=== PATIENT | female | born 1945 | race Caucasian/White ===

== ENCOUNTER → 2018-02-11 13:08 | Outpatient (CLI) | payer MEDICARE, OTHER, SELFPAY | PROVIDERS: Family Provider Family Medicine; PCP Family Medicine; Visit Provider Family Medicine | DX: M85.851 Other specified disorders of bone density and structure, right thigh (principal); Z78.0 Asymptomatic menopausal state; Z82.62 Family history of osteoporosis | CPT/HCPCS: 77080 ==

== ENCOUNTER 2018-04-02 12:20 | Emergency (ER) | payer MEDICARE, OTHER, SELFPAY ==
[2018-04-02 12:20] VITALS: BP 138/78; PULSE 68; RESP 13; TEMP 36.1; O2SAT 99
--- NOTE | 2018-04-02 13:49 | ED_ITS ---
HPI - Abdominal Pain General Chief Complaint: Abdominal Pain Stated Complaint: LEFT ABD PAIN AND N/V Time Seen by Provider: 04/02/18 13:49 Source: patient Mode of arrival: ambulatory Limitations: no limitations History of Present Illness HPI narrative: 72-year-old female here for evaluation of left lower quadrant abdominal pain. Patient states that this morning she was standing in her kitchen cooking food for dinner this evening when she had a fairly sudden onset of left lower quadrant abdominal pain. She states that she went had a bowel movement which did not change any of her symptoms. No blood no constipation no diarrhea of the stool. She states that she did become very sweaty during that time. She states she did vomit 1 time at home which did not improve any of her symptoms. Pain was not getting any better so she called her to bring her to the emergency department. She states the pain continued until she got here. She states she was sitting waiting to get triaged when all the sudden the left lower quadrant symptoms improved relatively quickly. At the time of my evaluation she was essentially symptom free. Related Data Home Medications Medication Instructions Recorded Confirmed prednisone 5 mg PO #0 06/07/16 amoxicillin-pot clavulanate 875 mg PO Q8H #0 06/08/16 [Augmentin] pravastatin 40 mg PO QDAY #0 06/08/16 Previous Rx's Medication Instructions Recorded prednisone 50 mg PO AMCC 3 Days #0 tab 06/07/16 Allergies Allergy/AdvReac Type Severity Reaction Status Date / Time Sulfa (Sulfonamide Allergy Unknown Unverified 09/22/17 11:49 Antibiotics) [SULFA (SULFONAMIDE ANTIBIOTICS)] Review of Systems Constitutional Denies fatigue, Denies fever(s) and Denies lethargy ENT Ears, Nose, Mouth, and Throat: Denies vertigo and Denies dizziness Cardiovascular Denies chest pain and Denies dyspnea Respiratory Denies dyspnea Gastrointestinal Gastrointestinal: Reports abdominal pain, Denies melena, Denies bloating, Denies change in bowel habits, Denies constipation, Denies diarrhea, Reports nausea and Reports vomiting Musculoskeletal Denies myalgias and Denies arthralgias Integumentary/Breasts Denies lesions and Denies rash Neurologic Denies vertigo and Denies dizziness Endocrine Denies fatigue Hematologic/Lymphatic Denies easy bleeding and Denies easy bruising [facility] Medical History Hyperlipidemia (Acute) Exam Initial Vital Signs Initial Vital Signs: Vital Signs Temperature 97 F L 04/02/18 12:20 Pulse Rate 68 04/02/18 12:20 Respiratory Rate 13 04/02/18 12:20 Blood Pressure 138/78 04/02/18 12:20 Pulse Oximetry 99 04/02/18 12:20 Const General: cooperative, healthy appearing, comfortable, well developed, well groomed and No acute distress Orientation: alert, awake and oriented x3 HENMT Head: normal to inspection and normocephalic Resp Effort & Inspection: normal respiratory effort Auscultation: clear to auscultation bilaterally Cardio Rate: regular rate Rhythm: regular rhythm Pulses: radial pulses present GI Inspection: non-distended Palpation: soft, No firm, No rigid and No tender Back/Spine/Pelvis Back: No CVA tenderness Skin Lesions: no lesions Rashes: no rashes Neuro General: alert, awake and oriented x3 Extrem General: normal to inspection and capillary refill normal Psych Appearance: grossly normal and well kempt Course Orders Ordered: ED Orders 04/02/18 12:58 Urine Microscopic Stat Vital Signs - 8 hr 04/02/18 12:20 Temperature 97 F L Pulse Rate 68 Respiratory Rate 13 Blood Pressure 138/78 Pulse Oximetry 99 MDM - Abdominal Pain Lab Data Point of care testing: Urine Dip Bedside Urine Glucose Negative Bedside Urine Bilirubin - Negative Bedside Urine Ketone +/- 5 Urine Specific [place]ph[place] 1.015 Bedside Urine Occult Blood +/- Bedside Urine pH 7.0 Bedside Urine Protein - Negative Bedside Urine Urobilinogen - Negative Bedside Urine Nitrite - Negative Bedside Urine Leukocytes - Negative Esterase MDM Narrative Medical decision making narrative: Patient was completely asymptomatic here in the emergency department. She did have blood in her urine and her symptoms are somewhat consistent with a kidney stone. She has never had a kidney stone in the past. I did discuss with her the options to include holding on any further workup for now since she was completely symptom free versus is doing things like a CT scan and blood work for evaluation of other intra-abdominal pathology such as appendicitis, bowel obstruction, diverticulitis. After this discussion the patient opted to not have any further workup performed. I do not feel like this is unreasonable given her current clinical situation. She did understand that we could potentially be missing a intra-abdominal surgical issue. She was given return precautions. She expressed understanding and agreement with plan. Discharge Plan Departure Patient Disposition: Home Clinical Impression: Abdominal pain Instructions: DI for Abdominal Pain-Adult Activity Restrictions/Additional Instructions: We opted not to do any further studies since you were symptom free at the time of your evaluation. If her symptoms worsen or he develops new symptoms please return to the emergency department for further evaluation. Prescriptions: No Action prednisone 5 MG tablet 5 mg PO Qty: 0 RF: 0 prednisone 50 MG tablet 50 mg PO AMCC 3 Days Qty: 0 RF: 0 pravastatin 40 MG tablet 40 mg PO QDAY Qty: 0 RF: 0 amoxicillin-pot clavulanate [Augmentin] 875 MG/125 MG tablet 875 mg PO Q8H Qty: 0 RF: 0
--- NOTE | 2018-04-02 14:08 | PC.NURSE ---
pt had episode of left lower abdominal pain, with shortness of breath and nausea, but now pain free.
--- NOTE | 2018-04-02 14:18 | PC.NURSE ---
pt pain free at this time, states, she wanted to go home, she has company at home and she will be cooking. reminded that if any symptoms changes or worsen to return to emergency room, verbal understanding instructions, verbal understanding plan of care.
[2018-04-02 17:57] LABS: Bacteria Urine None Seen; WBC Urine None Seen (0-5/HPF)
[2018-04-02 18:18] LABS: Culture Indicated Urine Cult Not Indicated; Mucus Urine 1+ (Negative); RBC Urine 1-5/HPF (0-5/HPF)
== END 2018-04-02 14:30 | disposition home or self-care (01) ==
PROVIDERS: Emergency Provider Emergency Medicine; Family Provider Family Medicine; PCP Family Medicine
DX: R10.9 Unspecified abdominal pain (principal)
CPT/HCPCS: 81003; 81015; 99282; 99283

== ENCOUNTER 2019-03-14 12:13 | Emergency (ER) | payer MEDICARE, OTHER, SELFPAY ==
[2019-03-14 12:15] VITALS: BP 142/85; PULSE 90; RESP 85; TEMP 36.6; O2SAT 97
--- NOTE | 2019-03-14 12:36 | ED.HEATRA ---
HPI - Head Injury General Chief complaint: Head Injury Stated complaint: LACERATION OF FOREHEAD Time Seen by Provider: 03/14/19 12:36 Source: patient Mode of arrival: Ambulatory Limitations: no limitations History of Present Illness HPI Narrative: This is a 73-year-old female who comes to the emergency department with complaint of head injury. Patient and her for cutting limbs on a tree when 1 of them fell and struck the patient on the forehead. Patient was not knocked out. She stated it hurt. She does have a cut on her forehead, she was bleeding. She denies any major headache, states that she did get her viera rung. She denies any neck pain currently. No vision changes, no dizziness or syncope. No loss of vision. She denies any other injuries. No chest pain, no shortness of breath. No nausea or vomiting. Patient denies any issues with bowel movements or urination. She denies any numbness, weakness or tingling in her extremities. 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 She has several antibiotic allergies. Related Data Home Medications Medication Instructions Recorded Confirmed pravastatin 40 mg PO QDAY #0 06/08/16 Allergies Allergy/AdvReac Type Severity Reaction Status Date / Time ciprofloxacin [From Cipro] Allergy Severe Anaphylaxis Verified 03/14/19 14:15 moxifloxacin [From Avelox] Allergy Severe Anaphylaxis Verified 03/14/19 14:15 Sulfa (Sulfonamide Allergy Unknown Verified 03/14/19 14:15 Antibiotics) [SULFA (SULFONAMIDE ANTIBIOTICS)] Review of Systems Review of Systems ROS Unobtainable: All systems reviewed & are unremarkable except as noted in HPI and below Constitutional Constitutional: Reports headache(s) (mild), Denies weakness and Reports other (cut to forehead) Eyes Eyes: Denies change in vision ENT Ears, Nose, Mouth, and Throat: Reports as per HPI, Denies vertigo, Denies dizziness, Reports headache(s) (mild), Denies neck pain and Denies disequilibrium Cardiovascular Cardiovascular: Denies chest pain, Denies syncope, Denies dyspnea and Denies dyspnea on exertion Respiratory Respiratory: Denies dyspnea and Denies dyspnea on exertion Gastrointestinal Gastrointestinal: Denies abdominal pain, Denies change in bowel habits, Denies constipation, Denies diarrhea, Denies nausea and Denies vomiting Genitourinary Genitourinary: Denies urinary incontinence Musculoskeletal Musculoskeletal: Reports as per HPI, Denies back pain, Denies arthralgias, Denies limited range of motion, Denies muscle weakness, Denies neck pain, Denies numbness and Denies tingling Integumentary/Breasts Skin/Breast: Reports as per HPI, Denies unusual bruising and Reports wounds Neurologic Neurologic: Reports as per HPI, Denies confusion, Denies vertigo, Denies dizziness, Denies syncope, Reports headache(s) (mild), Denies focal weakness, Denies numbness, Denies sensory deficit, Denies tingling, Denies paresthesias, Denies disequilibrium and Denies weakness Psychiatric Psychiatric: Denies confusion [facility] Social History Smoking Status: Never smoker Exam Narrative Exam Narrative: GEN: Patient appears in no acute distress. HEAD: Patient has a 1 cm semi circular laceration into the subcutaneous, no galea involvement, no raccoon/King sign. NECK: Nontender, painless range of motion, trachea midline Negative Nexus criteria, there is midline tenderness, distracting injury, altered mental status, neuro deficit, recent EtOH. EYES: PERRLA, EOMI ENT: External inspection normal except as above, trachea is midline, TM's are normal no hemotypanum, Nares are clear, no septal hematoma, no dental or oral injury, airway is normal and with normal occlusion, No bony tenderness RESP: Chest is nontender and has symmetric movement, no ecchymosis, breath sounds are normal no crackles, wheezes or rales CVS: Heart sounds are normal, no murmur noted, No JVD. ABG/GI: Nontender, soft, normal bowel sounds, no distention, no organomegaly NEURO: Oriented AOx3, neuro is grossly intact, sensation and motor is normal all 4 extremities moving, cranial nerves II through XII are intact, GCS is 15 PSYCH: Normal mood and affect SKIN: Intact other than above, warm and dry, no crepitus and without decubitus BACK: No CVA tenderness, no vertebral tenderness, no step-off's, no crepitus EXT: Atraumatic, hips are nontender, no pedal edema, normal color and temperature, normal range of motion of extremities with normal tendon exam, 2+ pulses in all four extremities Initial Vital Signs Initial Vital Signs: Vital Signs Temperature 97.9 F 03/14/19 12:15 Pulse Rate 90 03/14/19 12:15 Respiratory Rate 85 H 03/14/19 12:15 Blood Pressure 142/85 H 03/14/19 12:15 Pulse Oximetry 97 03/14/19 12:15 Procedures Laceration Repair Laceration 1: Site: face Size (cm): 1 Description: other (curved) Depth: simple, single layer Local Anesthetic: lidocaine 1% Amount of anesthesia used (mL): 2 Pre-repair: wound explored, irrigated extensively and deep structures intact Skin layer closed with: vicryl Size (cm): 5-0 Number of sutures: 3 Technique: simple, interrupted Scores GCS [place] coma scale eye opening: Spontaneous [place] coma scale verbal response: Orientated [place] coma scale motor response: Obey commands [place] coma scale total score: 15 Course Orders Ordered: ED Orders 03/14/19 12:47 CT head/brain wo con Stat Discontinued Medications Bacitracin (Bacitracin) 1 applic TOP NOW ONE Stop: 03/14/19 14:17 Last Admin: 03/14/19 14:20 Dose: 1 applic Documented by: SCANAPO Lidocaine/Sodium Bicarbonate (Buffered Lidocaine 10 Ml Syr) 10 ml INJ NOW ONE Stop: 03/14/19 13:55 Last Admin: 03/14/19 14:15 Dose: 10 ml Documented by: XAVI Vital Signs Vital signs: Vital Signs - 8 hr 03/14/19 12:15 03/14/19 13:19 03/14/19 14:00 Temperature 97.9 F Pulse Rate 90 79 71 Respiratory Rate 85 H 16 12 Blood Pressure 142/85 H Blood Pressure [Right Arm] 119/67 146/72 H Pulse Oximetry 97 98 97 MDM - Head Injury Imaging Data CT scan - head: Radiologist's impression: [address] [address] [address] Scan Report Signed Patient: Temo Figueroa LMR#: [id number] : 6Acct:[id number] Age/Sex: 73 / FDate of Service: 03/14/19 Loc: ED Accession Number: [id number] Procedure: CT head/brain wo con Ordering Provider: Melissa Carbone D.O. PROCEDURE: CT HEAD/BRAIN WO CON INDICATIONS: large tree branch to head, Scarlet factor deficiency, lac TECHNIQUE: Noncontrast 4.5 mm thick angled axial sections acquired from the foramen magnum to the vertex, with coronal and sagittal reformats. For radiation dose reduction, the following was used: automated exposure control, adjustment of mA and/or kV according to patient size. COMPARISON: None. FINDINGS: Image quality: Excellent. CSF spaces: Basal cisterns are patent. No extra-axial fluid collections. The ventricles are symmetric in size and shape. Brain: No intracranial bleeds or masses. There is cerebral volume loss for age, with resultant ventricular and sulcal prominence. There are periventricular and deep white matter chronic small vessel ischemic changes. There is intracranial internal carotid artery atherosclerosis. Skull and face: Calvarium and visualized facial bones appear intact, without suspicious lesions. Small frontal scalp hematoma and laceration. Sinuses: Visualized sinuses and mastoids are clear. IMPRESSION: No acute intracranial disease process. Dictated by: Shelley Pollock MD, PhD on 03/14/2019 at 12:57 Approved by: Shelley Pollock MD, PhD on 03/14/2019 at 12:59 [facility] Narrative Medical decision making narrative: Patient cspine cleared clinically. 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 She denies any other injuries. Ct Head is negative. Patient's laceration was sutured. Bleeding stopped easily. Patient states she was tested because her mother had the disease but she has never required treatment for it. Discharge Plan Departure Patient Disposition: Home Clinical Impression: Forehead laceration, Head injury Discharge Date/Time: 03/14/19 14:25 Instructions: DI for Closed Head Injury Activity Restrictions/Additional Instructions: Follow-up with your primary care physician in the next 2-3 days for recheck. May continue home medications as prescribed. Wound Care: Keep wound(s) clean and dry. Wash daily with soap and water only. Do not use over the counter products (alcohol or peroxide)on the wounds unless instructed by a physician, you may apply a triple antibiotic ointment to the affected area twice daily. If wound condition worsens (increased/expanding redness, developing fluid blisters, or worsening pain), either contact your doctor for an urgent re-assessment , or return to the Emergency Department. Return to the Emergency Department for any new or worsening symptoms. Return if fever greater than 100.4 Fahrenheit, increased swelling, increasing pain or worsening symptoms such as increased discharge or spreading redness. Return for sudden or severe headaches, passing out, lightheadedness, persistent vomiting, vision changes, new chest pain, shortness of breath, loss of bowel or bladder control, new weakness, numbness or other new or concerning symptoms. Prescriptions: No Action pravastatin 40 MG tablet 40 mg PO QDAY Qty: 0 RF: 0 Referrals: Sahil Briceno MD [Primary Care Provider] -
--- NOTE | 2019-03-14 12:47 | DI.CT.S_ITS ---
PROCEDURE: CT HEAD/BRAIN WO CON INDICATIONS: large tree branch to head, [place] factor deficiency, lac TECHNIQUE: Noncontrast 4.5 mm thick angled axial sections acquired from the foramen magnum to the vertex, with coronal and sagittal reformats. For radiation dose reduction, the following was used: automated exposure control, adjustment of mA and/or kV according to patient size. COMPARISON: None. FINDINGS: Image quality: Excellent. CSF spaces: Basal cisterns are patent. No extra-axial fluid collections. The ventricles are symmetric in size and shape. Brain: No intracranial bleeds or masses. There is cerebral volume loss for age, with resultant ventricular and sulcal prominence. There are periventricular and deep white matter chronic small vessel ischemic changes. There is intracranial internal carotid artery atherosclerosis. Skull and face: Calvarium and visualized facial bones appear intact, without suspicious lesions. Small frontal scalp hematoma and laceration. Sinuses: Visualized sinuses and mastoids are clear. IMPRESSION: No acute intracranial disease process. Dictated by: Shelley Pollock MD, PhD on 03/14/2019 at 12:57 Approved by: Shelley Pollock MD, PhD on 03/14/2019 at 12:59
[2019-03-14 13:19] VITALS: BP 119/67; PULSE 79; RESP 16; O2SAT 98
[2019-03-14 14:00] VITALS: BP 146/72; PULSE 71; RESP 12; O2SAT 97
[2019-03-14] MEDS: LIDO 1%/SOD BICARB 8.4% (10ML) 10 ML SYRINGE INJ (14:15)
[2019-03-14] MEDS: BACITRACIN OINT 0.9 GM PCKT 1 APPLIC TOP (14:20)
== END 2019-03-14 14:25 | disposition home or self-care (01) ==
PROVIDERS: Emergency Provider Emergency Medicine; Family Provider Family Medicine; PCP Family Medicine
DX: S01.81XA Laceration without foreign body of other part of head, initial encounter (principal); S09.90XA Unspecified injury of head, initial encounter
CPT/HCPCS: 12011; 70450; 99282; 99284

== ENCOUNTER 2019-07-09 13:38 | Emergency (ER) | payer MEDICARE, OTHER, SELFPAY ==
[2019-07-09 13:51] VITALS: BP 147/75; PULSE 104; RESP 18; TEMP 36.5; O2SAT 98
--- NOTE | 2019-07-09 13:56 | ED.NAVMDI ---
HPI - Nausea/Vomiting/Diarrhea General Chief complaint: Nausea/Vomiting/Diarrhea Stated complaint: diarrhea 2x weeks/ incontrollable/ blood in stool Time Seen by Provider: 07/09/19 13:48 Source: patient Mode of arrival: Ambulatory Limitations: no limitations History of Present Illness HPI Narrative: Patient is a 74-year-old female who presents with diarrhea ongoing for last 2-3 weeks. She says she has had about 9 episodes a day she has lost 15 lb. Every time she eats or drinks anything it seems to go right through her. She has absolutely no abdominal pain fever or chills no recent travel no vomiting. She was diagnosed with IBS multiple years ago she found food sensitivities so she has already removed dairy and gluten and others from her diet and things have been controlled for numerous years. She has tried numerous things to help increase fluid and food intake however it does not matter what she eats or drinks she immediately has diarrhea. She has not been on any recent antibiotic Related Data Home Medications Medication Instructions Recorded Confirmed pravastatin 40 mg PO QDAY #0 06/08/16 Allergies Allergy/AdvReac Type Severity Reaction Status Date / Time ciprofloxacin [From Cipro] Allergy Severe Anaphylaxis Verified 03/14/19 14:15 moxifloxacin [From Avelox] Allergy Severe Anaphylaxis Verified 03/14/19 14:15 Sulfa (Sulfonamide Allergy Unknown Verified 03/14/19 14:15 Antibiotics) [SULFA (SULFONAMIDE ANTIBIOTICS)] Review of Systems Review of Systems Narrative: GENERAL:+ weight loss Denies chills, fatigue, malaise, fever, sweats, travel HEENT: Denies sinus pain, ear pain, sore throat, difficulty swallowing, neck pain RESPIRATORY: Denies dyspnea, cough, wheezing, hemoptysis, sputum. CARDIOVASCULAR: Denies chest pain, palpitations, orthopnea, edema GASTROINTESTINAL: See HPI : Denies dysuria, frequency, incontinence, hematuria, urinary retention, flank pain. MUSCULOSKELETAL: Denies weakness, joint pain, or bony pain SKIN: No rash, no erythema, no pruritus NEUROLOGIC: Denies weakness, dizziness, headache, numbness, change in speech, confusion PSYCHIATRIC: No concerning psychosocial issues. 12 point review of systems is negative except for those stated above and HPI Patient History Medical History Hyperlipidemia (Acute) Surgical History H/O: hysterectomy (Acute) Social History Smoking Status: Never smoker Smoking Status: Never smoker alcohol intake frequency: 0-2 drinks per day Substance Use Type: does not use Exam Initial Vital Signs Initial Vital Signs: Vital Signs Temperature 97.7 F 07/09/19 13:51 Pulse Rate 104 H 07/09/19 13:51 Respiratory Rate 18 07/09/19 13:51 Blood Pressure 147/75 H 07/09/19 13:51 Pulse Oximetry 98 07/09/19 13:51 GENERAL: Well-appearing, well-nourished and in no acute distress. HEENT: Head atraumatic,EOMI, pupils reactive CARDIOVASCULAR: Regular rate and rhythm without murmurs, rubs or gallops. RESPIRATORY: Breath sounds equal bilaterally, no wheezes rales or rhonchi. ABDOMEN: Soft, nontender. Normoactive bowel sounds all 4 quadrants. No guarding or rebound. EXTREMITIES: Normal range of motion, no clubbing or edema. Neurovascularly intact NEUROLOGICAL: Alert and oriented x4.Normal gait and speech. Cranial nerves II through XII grossly intact. SKIN: Warm, dry, no laceration, no petechiae, no rashes or lesions. Course Orders Ordered: ED Orders 07/09/19 14:00 Complete Blood Count AUTO DIFF Stat Comprehensive Metabolic Panel Stat Lipase Stat Partial Thromboplastin Time Stat Prothrombin Time INR Stat Discontinued Medications Sodium Chloride (Normal Saline 0.9%) 1,000 mls @ 1,000 mls/hr IV CONT LILY Last Infusion: 07/09/19 16:15 Dose: 0 mls/hr Documented by: Admin: 07/09/19 14:36 Dose: 1,000 mls/hr Documented by: THI Vital Signs Vital signs: Vital Signs - 8 hr 07/09/19 13:51 07/09/19 16:25 Temperature 97.7 F Pulse Rate 104 H 85 Respiratory Rate 18 21 Blood Pressure 147/75 H Blood Pressure [Left Arm] 129/63 Pulse Oximetry 98 99 MDM - Nausea/Vomiting/Diarrhea Lab Data Attestation: I reviewed the patient's lab results. Result diagrams: 07/09/19 14:00 07/09/19 14:00 Labs: Lab Results 07/09/19 07/09/19 07/09/19 Range/Units 14:00 14:00 14:00 WBC 5.5 (4.5-11.0) X10^3/uL RBC 4.96 (4.0-5.2) X10^6/uL Hgb 14.8 (12.0-16.0) g/dL Hct 44.4 (36-46) % MCV 89.4 (80-100) fL MCH 29.9 (26-34) PG MCHC 33.4 (30-36) % RDW 14.7 (11.6-14.8) % Plt Count 272 (150-400) X10^3/uL Neut % (Auto) 50.6 (50-75) % Lymph % (Auto) 32.7 (25-40) % [place] % (Auto) 13.9 (3-14) % Eos % (Auto) 2.0 (2-4) % Baso % (Auto) 0.8 (0-2) % Neut # (Auto) 2800 (5678-9916) /uL Lymph # (Auto) 1800 (2667-9661) /uL [place] # (Auto) 800 (0-900) /uL Eos # (Auto) 100 (0-450) /uL Baso # (Auto) 0 (0-100) /uL PT 11.8 (10.1-12.7) SECONDS INR 1.0 (0.9-1.3) APTT 33 (26.4-36.2) SECONDS Sodium 140 (137-145) mmol/L Potassium 4.2 (3.4-5.1) mmol/L Chloride 102 (98-107) mmol/L Carbon Dioxide 28 (22-32) mmol/L BUN 16 (7-17) mg/dL Creatinine 0.70 (0.52-1.04) mg/dL Estimated GFR > 60.0 (>60) mL/min BUN/Creatinine Ratio 22.9 H (6-22) Glucose 107 (80-110) mg/dL Calcium 9.8 (8.4-10.2) mg/dL Total Bilirubin 0.4 (0.2-1.3) mg/dL AST 27 (14-36) IU/L ALT 17 (<35) IU/L Alkaline Phosphatase 73 (38-126) U/L Total Protein 7.6 (6.3-8.2) g/dL Albumin 4.6 (3.5-5.0) g/dL Globulin 3.0 (1.7-4.1) g/dL Albumin/Globulin Ratio 1.5 (1.0-2.8) Lipase (23-300) U/L 07/09/19 Range/Units 14:00 WBC (4.5-11.0) X10^3/uL RBC (4.0-5.2) X10^6/uL Hgb (12.0-16.0) g/dL Hct (36-46) % MCV (80-100) fL MCH (26-34) PG MCHC (30-36) % RDW (11.6-14.8) % Plt Count (150-400) X10^3/uL Neut % (Auto) (50-75) % Lymph % (Auto) (25-40) % [place] % (Auto) (3-14) % Eos % (Auto) (2-4) % Baso % (Auto) (0-2) % Neut # (Auto) (6401-8778) /uL Lymph # (Auto) (8967-3765) /uL Providence # (Auto) (0-900) /uL Eos # (Auto) (0-450) /uL Baso # (Auto) (0-100) /uL PT (10.1-12.7) SECONDS INR (0.9-1.3) APTT (26.4-36.2) SECONDS Sodium (137-145) mmol/L Potassium (3.4-5.1) mmol/L Chloride (98-107) mmol/L Carbon Dioxide (22-32) mmol/L BUN (7-17) mg/dL Creatinine (0.52-1.04) mg/dL Estimated GFR (>60) mL/min BUN/Creatinine Ratio (6-22) Glucose (80-110) mg/dL Calcium (8.4-10.2) mg/dL Total Bilirubin (0.2-1.3) mg/dL AST (14-36) IU/L ALT (<35) IU/L Alkaline Phosphatase (38-126) U/L Total Protein (6.3-8.2) g/dL Albumin (3.5-5.0) g/dL Globulin (1.7-4.1) g/dL Albumin/Globulin Ratio (1.0-2.8) Lipase 89 (23-300) U/L Point of Care Testing Stool Occult Blood Positive Urine Dip Bedside Urine Glucose Negative Bedside Urine Bilirubin - Negative Bedside Urine Ketone - Negative Urine Specific Curtice 1.020 Bedside Urine Occult Blood - Negative Bedside Urine pH 6.0 Bedside Urine Protein - Negative Bedside Urine Urobilinogen - Negative Bedside Urine Nitrite - Negative Bedside Urine Leukocytes - Negative Esterase MDM Narrative Medical decision making narrative: The patient has not had diarrhea after 3-1/2 hours in the emergency department with food and drink. I have spoken with Dr. Espinal on-call for PCP who will order an outpatient in GI panel. Patient is sent home with stool collection kit. Patient's blood work overall is reassuring. No significant leukocytosis. She has not been on any recent antibiotics of C diff is still possible. She will need GI panel. Discharge Plan Departure Patient Disposition: Home Clinical Impression: Chronic diarrhea Discharge Date/Time: 07/09/19 17:44 Instructions: Diarrhea Activity Restrictions/Additional Instructions: *You have been diagnosed with chronic diarrhea *What to do: You need an outpatient stool sample you will be sent home with a stool collecting kit in the order will be placed tomorrow. *Continue to take medications as directed *Follow up with your primary care provider in 2-3 days *Return to ER if you should have increasing diarrhea, increasing pain or any new, worsening or concerning symptoms Prescriptions: No Action pravastatin 40 MG tablet 40 mg PO QDAY Qty: 0 RF: 0 Referrals: Sahil Briceno MD [Primary Care Provider] - Erica Guerra MD [Physician] -
--- NOTE | 2019-07-09 14:06 | PC.NURSE ---
denies traveling, denies antibiotic treatments.
[2019-07-09 14:33] LABS: Add Manual Diff / Slide Review NO; Basophils Absolute Auto 0 /uL (0-100); Basophils Percent Auto 0.8 % (0-2); Eosinophils Absolute Auto 100 /uL (0-450); Hematocrit 44.4 % (36-46); Hemoglobin 14.8 g/dL (12.0-16.0); Lymphocytes Absolute Auto 1800 /uL (1100-4500); Lymphocytes Percent Auto 32.7 % (25-40); Mean Corpuscular HGB Conc 33.4 % (30-36); Mean Corpuscular Hemoglobin 29.9 PG (26-34); Mean Corpuscular Volume 89.4 fL (80-100); Monocytes Absolute Auto 800 /uL (0-900); Monocytes Percent Auto 13.9 % (3-14); Neutrophils Absolute Auto 2800 /uL (1500-7000); Neutrophils Percent Auto 50.6 % (50-75); Platelet Count 272 X10^3/uL (150-400); Red Blood Cell Count 4.96 X10^6/uL (4.0-5.2); Red Cell Distribution Width 14.7 % (11.6-14.8); White Blood Cell Count 5.5 X10^3/uL (4.5-11.0)
[2019-07-09] MEDS: SODIUM CHLORIDE 0.9% 1,000 ML 1000 ML IV (14:36)
[2019-07-09 14:38] LABS: Prothrombin Time 11.8 SECONDS (10.1-12.7)
[2019-07-09 14:41] LABS: PTT Partial Thromboplastin Tim 33 SECONDS (26.4-36.2)
[2019-07-09 14:44] LABS: Alanine Aminotransferase 17 IU/L (<35); Albumin 4.6 g/dL (3.5-5.0); Albumin Globulin Ratio 1.5 (1.0-2.8); Alkaline Phosphatase 73 U/L (38-126); Aspartate Aminotransferase 27 IU/L (14-36); BUN Creatinine Ratio 22.9 (6-22); Bilirubin Total 0.4 mg/dL (0.2-1.3); Blood Urea Nitrogen 16 mg/dL (7-17); Calcium 9.8 mg/dL (8.4-10.2); Carbon Dioxide 28 mmol/L (22-32); Chloride 102 mmol/L (98-107); Estimated Glomerular Filt Rate > 60.0 mL/min (>60); Glucose 107 mg/dL (80-110); HEMOLYSIS < 15 (0-50); Lipase 89 U/L (23-300); Potassium 4.2 mmol/L (3.4-5.1); Sodium 140 mmol/L (137-145); Total Protein 7.6 g/dL (6.3-8.2)
[2019-07-09 16:25] VITALS: BP 129/63; PULSE 85; RESP 21; O2SAT 99
== END 2019-07-09 17:44 | disposition home or self-care (01) ==
PROVIDERS: Emergency Provider Emergency Medicine; Family Provider Family Medicine; PCP Family Medicine
DX: K58.0 Irritable bowel syndrome with diarrhea (principal)
CPT/HCPCS: 36415; 80053; 81003; 82272; 83690; 85025; 85610; 85730; 96360; 96361; 99284

== ENCOUNTER → 2019-07-15 10:52 | Outpatient (CLI) | payer MEDICARE, OTHER, SELFPAY ==
--- NOTE | 2019-07-15 | DI.MG.S_ITS ---
BILATERAL DIGITAL SCREENING MAMMOGRAM 3D/2D WITH CAD: 07/15/2019 CLINICAL: Routine screening. Comparison is made to exams dated: 05/03/2017 mammogram - [facility], 04/03/2016 mammogram, and 02/14/2015 mammogram - [facility]. There are scattered fibroglandular elements in both breasts. Current study was also evaluated with a Computer Aided Detection (CAD) system. No significant masses, calcifications, or other findings are seen in either breast. There has been no significant interval change. IMPRESSION: NEGATIVE There is no mammographic evidence of malignancy. A 1 year screening mammogram is recommended. This exam was interpreted at Station ID: [id number]. NOTE: For mammograms, a report in lay terms will be sent to the patient. Approximately 15% of breast malignancies will not be visualized mammographically. In the management of a palpable breast mass, a negative mammogram must not discourage biopsy of a clinically suspicious lesion. Electronically Signed By: Maggie mccray/kristian:07/17/2019 09:15:25 letter sent: Normal Exam ACR BI-RADS Category 1: Negative 3341F
== END ==
PROVIDERS: Family Provider Family Medicine; PCP Student in an Organized Health Care Education/Training Program; Referring Provider Student in an Organized Health Care Education/Training Program; Visit Provider Student in an Organized Health Care Education/Training Program
DX: Z12.31 Encounter for screening mammogram for malignant neoplasm of breast (principal)
CPT/HCPCS: 77063; 77067

== ENCOUNTER → 2019-11-07 08:45 | Outpatient (CLI) | payer MEDICARE, OTHER, SELFPAY ==
--- NOTE | 2019-11-07 | DI.US.S_ITS ---
PROCEDURE: US ABDOMEN COMPLETE INDICATIONS: IRRITABLE BOWEL SYNDROME W/O DIARRHEA TECHNIQUE: Real-time scanning was performed of the abdominal and retroperitoneal organs, with image documentation. COMPARISON: None. FINDINGS: Liver: Liver is normal in size and homogeneous in echotexture. Gallbladder: No gallstones. The gallbladder wall is equivocally thickened. No pericholecystic fluid. There is positive sonographic Knight's sign. Biliary ducts: Intrahepatic bile ducts are non-dilated. Extrahepatic bile duct caliber measures 4.7 mm. Normal is 6-7 mm or less in diameter, or 10 mm or less post-cholecystectomy. Pancreas: Visualized portions of the pancreas are sonographically normal. Spleen: Spleen is normal in size and homogeneous in echotexture. Kidneys: Kidneys are normal in size and echotexture. Right kidney measures 9.7 cm long; left kidney measures 10.6 cm long. No hydronephrosis or nephrolithiasis. No solid masses. Bilateral simple appearing renal cysts. A couple of cysts are seen in the left kidney measuring 4.0 x 3.5 x 2.7 cm and 2.1 x 2.3 x 2.3 cm. There is a 1.2 x 0.9 x 1.8 cm cyst in the right kidney. Aorta: Visualized aorta is normal in caliber at less than 3 cm. Iliacs: Proximal common iliac arteries are normal in caliber at less than 2.5 cm. IVC: Intrahepatic inferior vena cava is patent. Miscellaneous: No free abdominal fluid. IMPRESSION: 1. No gallstones. There is equivocal gallbladder wall thickening and positive sonographic Knight sign. If clinical symptoms persist or clinical suspicion for pathology is high, a HIDA scan or MRCP may be helpful for further evaluation. 2. Bilateral simple appearing renal cysts. Dictated by: Joshua Trent M.D. on 11/07/2019 at 10:36 Approved by: Joshua Trent M.D. on 11/07/2019 at 10:42
== END ==
PROVIDERS: Family Provider Family Medicine; PCP Student in an Organized Health Care Education/Training Program; Referring Provider Student in an Organized Health Care Education/Training Program; Visit Provider Student in an Organized Health Care Education/Training Program
DX: K58.9 Irritable bowel syndrome, unspecified (principal); R10.11 Right upper quadrant pain; R10.13 Epigastric pain; N28.1 Cyst of kidney, acquired
CPT/HCPCS: 76700

== ENCOUNTER → 2019-11-20 08:44 | Outpatient (CLI) | payer MEDICARE, OTHER, SELFPAY ==
--- NOTE | 2019-11-20 | DI.NM.S_ITS ---
PROCEDURE: NM HIDA WITH CCK PHARMACEUTICAL: 5.5 mCi Tc-99m mebrofenin IV; a 1.1 mcg CCK IV. INDICATIONS: Right upper quadrant pain TECHNIQUE: Following intravenous administration of Tc-99m mebrofenin, sequential anterior abdominal images were obtained. To evaluate the contractile response of the gallbladder in response to Cholecystokinin (CCK), sincalide (0.02 ?g/kg) was administered by slow intravenous infusion approximately 60 minutes after the administration of the radiopharmaceutical. Sequential imaging was continued for 30 minutes after the start of CCK infusion. Gallbladder ejection fraction was calculated. COMPARISON: [facility], , US ABDOMEN COMPLETE, 11/07/2019, 9:09. FINDINGS: Biliary scan: There is normal tracer uptake and excretion by the liver. There is normal visualization of the intrahepatic ducts, common bile duct, and gallbladder. There is normal tracer transit into the duodenum. CCK stimulation: There is markedly decreased contractile response of the gallbladder to CCK infusion. The calculated gallbladder ejection fraction is 6 %; normal values are above 35%. It has been shown that any patient abdominal pain after CCK administration is related to the rate of CCK injection, rather than to any underlying gallbladder disease (Clinical Nuclear Medicine 2012; 37: 63-70. Journal of Nuclear Medicine 2014; 55: 1-9). IMPRESSION: Markedly decreased gallbladder ejection fraction raising the possibility of chronic or acute on chronic acalculous cholecystitis. Please correlate clinically and with LFTs Dictated by: Kevin Tsang M.D. on 11/20/2019 at 13:19 Approved by: Kevin Tsang M.D. on 11/20/2019 at 13:22
== END ==
PROVIDERS: Family Provider Family Medicine; PCP Student in an Organized Health Care Education/Training Program; Referring Provider Family Medicine; Visit Provider Family Medicine
DX: R10.11 Right upper quadrant pain (principal)
CPT/HCPCS: 78227; A9537; J2805

== ENCOUNTER → 2020-01-07 08:39 | Outpatient (CLI) | payer MEDICARE, OTHER, SELFPAY ==
[2020-01-09 15:52] LABS: COVID19 Sendout Not Detected (Not Detect)
== END ==
PROVIDERS: Family Provider Family Medicine; PCP Family Medicine; Visit Provider Physician Assistant
DX: Z01.818 Encounter for other preprocedural examination (principal)
CPT/HCPCS: 87635

== ENCOUNTER 2020-01-10 06:43 | Day surgery (SDC) | payer MEDICARE, OTHER, SELFPAY ==
[2020-01-08 15:08] VITALS: BMI 23.0
[2020-01-10] VITALS (9 sets, daily range): BP systolic 122–156; BP diastolic 56–75; PULSE 45–68; RESP 12–16; TEMP 35.7–36.7; O2SAT 93–100; BMI 23.5
--- NOTE | 2020-01-10 | PATH_ITS ---
[facility] Accession Number: [id number] . 01 Material submitted: . gallbladder - GALLBLADDER . 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 Background of chronic cholecystitis and cholesterolosis. Negative for dysplasia or malignancy. [facility] 01/12/2020 1457 Local . 02 Electronically signed: . Amy Jamison MD, Pathologist NPI- [id number] . 01 Gross description: . Specimen A is received in formalin, labeled with patient identification and gallbladder. It consists of an intact gallbladder measuring 7.8 cm in length and 3.7 cm in diameter. The cystic duct margin is stapled shut and is inked blue. The cystic duct is 4.4 cm in length and 0.4 cm in diameter. The cystic duct adhered to the infundibulum. The serosa is green-arguelles, smooth and glistening. The 4.2 x 4.0 cm yellow-arguelles ragged and focally cauterized hepatic surface is inked black. Opening the specimen reveals green and mucoid content within the lumen which is lined by green and velvety mucosa. Sectioning reveals a 1.9 x 1.0 x 1.0 cm multicystic lesion within the fundal wall. The cystic lesion is 1.1 cm to the closest hepatic surface and abuts the serosal surface. The wall at the neck also has multiple cystic lesions ranging from 0.1 to 0.3 cm in greatest dimension, and the wall thickness at the neck is up to 0.4 cm. The serosal surface at these lesions is inked orange. The uninvolved wall ranges from 0.1 to 0.7 cm in thickness. No calculi or cystic lymph nodes are present. [employer] sections are submitted in seven cassettes. . Summary of sections: A1 - cystic duct margin, shaved, one piece. A2-A3 - sales representative groceries sections of multicystic fundal lesion to the serosa and the closest hepatic surface, one piece each. A4-A5 - the remaining sections of the multicystic fundal lesion to the uninvolved mucosa, one piece each. A6 - sales representative groceries sections of cystic lesion at the neck, four pieces. A7 - sales representative groceries uninvolved mucosa, three pieces. ([id number]) /MRV 01/11/2020 1446 Local . 02 Pathologist provided ICD-10: K82.8 . 02 CPT . 076722 Performed at: 01 [facility] [address], [place], [place] [id number] MD Nam Santacruz MD Phone: [phone] Performed at: 02 [facility] [address] [place], [place] [id number] MD Nora Dodd MD Phone: [phone]
[2020-01-10] MEDS: LACTATED RINGERS 1,000 ML 100 ML IV ×2 (07:20→11:32)
--- NOTE | 2020-01-10 07:39 | PM.PREOP ---
Pre-operative Note COVID-19 COVID-19 status: Negative Result date/Date tested (Pos, Neg/Pending): 01/07/20 Interval Note History & Physical reviewed/Exam performed by Physician: Yes Changes to H&P: No
[2020-01-10] MEDS: [UNRECOGNIZED DRUG - OTHER] 25 EACH IV (07:40)
[2020-01-10] MEDS: PIPERACILLIN-TAZO 3.375 GM/50 ML FROZ.PIGGY IV (08:00)
--- NOTE | 2020-01-10 08:13 | SUR.OPER ---
Supine on padded OR bed, head on pillow, arms secured on padded arm boards at <90 degrees abduction, legs uncrossed, safety belt at thigh, tape over blanket over lower legs.
[2020-01-10] MEDS: BUPIVACAINE 0.25% W/ EPI 30 ML VIAL INJ (08:33)
--- NOTE | 2020-01-10 09:39 | PM.OP.1 ---
Operative Date/Time/Diagnoses Date of procedure: 01/10/20 Time of procedure: 09:39 Pre-op diagnosis: Chronic cholecystitis; biliary dyskinesia Post-op diagnosis: same Procedure & Clinicians Procedure: Laparoscopic cholecystectomy with ICG dye cholangiography Same procedure as scheduled: Yes Indications: Biliary dyskinesia; chronic cholecystitis Surgeon: Cora Lima Click Yes if Unassisted: Yes Anesthesia Type: General Operative Notes Findings: Thickened gall bladder with dense adhesions Specimen(s): other (gall bladder) Estimated Blood Loss (mL): 1 Blood products transfused: none Procedure in detail: Prior to coming in the OR the patient was given 25 mg of indocyanine green intravenously in the preop area for ICG cholangiography. The patient was brought into the operating room and placed supine on the OR table. Sequential compression devices were placed on both legs and turned on. Appropriate perioperative antibiotics were given prior to the start of surgery. General anesthesia was induced the patient was intubated. The abdomen was prepped and draped in sterile fashion. Surgical time-out was conducted. Local anesthetic was injected under the skin just superior to the umbilicus and a 5 mm vertical incision was made at this site. The umbilical stalk was grasped with a Eze and elevated. A Veress needle was passed through the fascia into proper position. The position was tested with a saline drop test which was appropriate for intra-abdominal Veress needle placement. The abdomen was then insufflated in the usual fashion. Once insufflated to 15 mm Hg the Veress needle was removed and a 5 mm optical trocar was placed under direct vision using a 5 mm 30 degree scope. Once the camera was inside the abdomen I took a look around. There was no injury from port placement. Two additional ports were placed in a similar fashion in the right upper quadrant and a 10 mm port was placed in the epigastrium. Through the 2 lateral ports the gallbladder was grasped and elevated and the infundibulum was retracted laterally to the patient's right. This exposed the gallbladder hilum and allowed for dissection of the cystic duct and cystic artery. There was quite a bit adherent omentum along the surface of the gallbladder and the gallbladder hilum. This was taken down using [place] and L hook cautery. Once this was taken down the gallbladder was exposed. There was dense fibrotic scar tissue overlying the infundibulum and gallbladder hilum. This required tedious careful dissection to avoid injury to the bile ducts. We turned on the fluorescein lamp in order to view the bile ducts, which gave a good view of the cystic duct. It was very small and narrow structure which was scarred down, with the infundibulum overlapping it. After careful dissection, I was able to straighten out the cystic duct, and taken other view with the floor seen lamp. Using the ICG dye we are able to see well the cystic duct and that the area of clip placement was well away from the common duct. Once the cystic duct and artery were completely dissected out and I was able to see liver behind and between both structures without any other structures in the way, giving us the critical view of safety. At this point I doubly clipped both structures on the patient's side and put a single clip on the gallbladder side of both the cystic duct and artery. Both structures were then divided with laparoscopic Esme. Following this the gallbladder was gradually dissected free from the liver. There was quite a bit of hypervascularity of the scar tissue between the gallbladder and the liver. Several small vessels had to be controlled with cautery. As I moved up the fundus of the gallbladder, there was no plane between the gallbladder itself in the liver, and so the gallbladder had to be peeled off the raw surface of the liver, and the raw surface of the liver had to be cauterized, with good hemostasis. Once the gallbladder was entirely freed, it was placed inside an Endo-Catch bag and removed through the epigastric port site. I [did not] have to enlarge the epigastric site in order to get the gallbladder out. Once it was out and passed off to the back table I then took another look inside the abdomen. There was some raw surface of the gallbladder fossa which was slightly oozing, this was cauterized with L hook cautery, and a Surgicel was placed on the raw surface. There was no active bleeding or leaking of bile from the gallbladder fossa or from the clipped stumps of the cystic duct and artery. At this point the insufflation was removed from the abdomen and the epigastric port site was closed with 0 Vicryl suture in the fascia, 3 O Vicryl in the subcutaneous layers, and 4 Monocryl in the skin. The remaining port sites were closed with 4 Monocryl in the skin. Each port site was sealed with Dermabond. Local anesthetic was given at each of the port sites and in the fascia. This concluded the procedure. At this point the needle sponge and instrument counts were correct. The gallbladder was passed off the table for pathology. Patient was awakened from anesthesia and extubated. She was transferred to the postanesthesia care unit in stable condition. Complications: none Post-operative Condition: stable Disposition: PACU
[2020-01-10] MEDS: ACETAMINOPHEN 325 MG TABLET 650 MG PO (10:22)
[2020-01-10] MEDS: ONDANSETRON 4 MG/2 ML INJ IV (10:22)
--- NOTE | 2020-01-10 10:25 | SUR.PHASEII ---
Patient c/o nausea. medicated for same. Incisions remain clean, dry and intact. Call light in reach.
--- NOTE | 2020-01-10 11:06 | SUR.PHASEII ---
pt still c/o nausea after zofran. Notiified Dr Whitney. Reglan IV ordered. at bedside and supportive.
[2020-01-10] MEDS: METOCLOPRAMIDE 10 MG/2 ML INJ IV (11:14)
== END 2020-01-10 12:30 | disposition home or self-care (01) ==
PROVIDERS: Family Provider Family Medicine; PCP Family Medicine; Referring Provider Surgery; Visit Provider Surgery
PROC: 0FT44ZZ Resection of Gallbladder, Percutaneous Endoscopic Approach (ICD-10-PCS; CPT 47562; principal; 2020-01-10 07:45)
DX: K82.8 Other specified diseases of gallbladder (principal); K81.1 Chronic cholecystitis
CPT/HCPCS: 47563; J1100; J2405; J2543; J2704; J2765; J3010

== ENCOUNTER → 2021-12-16 14:46 | Outpatient (CLI) | payer MEDICARE, OTHER, SELFPAY ==
--- NOTE | 2021-12-16 14:48 | DI.MG.S_ITS ---
BILATERAL DIGITAL SCREENING MAMMOGRAM 3D/2D WITH CAD: 12/16/2021 CLINICAL: Routine screening. Comparison is made to exams dated: 07/15/2019 mammogram - [facility], 05/03/2017 mammogram - [facility], and 04/03/2016 mammogram - [facility]. There are scattered fibroglandular elements in both breasts. Current study was also evaluated with a Computer Aided Detection (CAD) system. No significant masses, calcifications, or other findings are seen in either breast. There has been no significant interval change. IMPRESSION: NEGATIVE There is no mammographic evidence of malignancy. A 1 year screening mammogram is recommended. Based on the Tyrer Cuzick model (a risk assessment model) the patient's lifetime risk is 2.9% and her 10 year risk is 2.9%. According to the ACR, ACS, and NCCN guidelines, an annual breast MRI exam along with mammogram is recommended if the patient's lifetime risk is 20% or greater. This exam was interpreted at Station ID: [id number]. NOTE: For mammograms, a report in lay terms will be sent to the patient. Approximately 15% of breast malignancies will not be visualized mammographically. In the management of a palpable breast mass, a negative mammogram must not discourage biopsy of a clinically suspicious lesion. Electronically Signed By: Harshal fofana/kristian:12/17/2021 08:30:03 letter sent: Normal Exam ACR BI-RADS Category 1: Negative [id number]
== END ==
PROVIDERS: PCP Family Medicine; Referring Provider Family Medicine; Visit Provider Family Medicine
DX: Z12.31 Encounter for screening mammogram for malignant neoplasm of breast (principal)
CPT/HCPCS: 77063; 77067